=== PATIENT | female | born 1980 | race Caucasian/White ===

== ENCOUNTER 2018-09-11 07:03 | Observation (INO) | payer MEDICAID | END 2018-09-11 08:28 | disposition home or self-care (01) | LOC: FLD 07:03 | PROVIDERS: ADMIT Hospitalist; ATTEND Advanced Practice Midwife | DX: O36.8130 Decreased fetal movements, third trimester, not applicable or unspecified (principal); Z3A.37 37 weeks gestation of pregnancy ==

== ENCOUNTER 2018-09-14 08:35 | Inpatient (IN) | payer MEDICAID ==
[2018-09-14] MEDS ORDERED: OLIVE OIL 118 ML BTL MISC PRN (08:57)
[2018-09-14] MEDS ORDERED: OXYTOCIN/RINGERS LACTATE 1,000 ML IV PRN (08:57)
[2018-09-14] MEDS ORDERED: TERBUTALINE SULFATE 1 MG/ML VIAL IV PRN (08:57)
[2018-09-14] MEDS ORDERED: LIDOCAINE 1% 300 MG/30 ML SDV SC PRN (08:57)
[2018-09-14] MEDS ORDERED: MISOPROSTOL 200 MCG TAB PO PRN (08:57)
[2018-09-14] MEDS ORDERED: AMMONIA AROMATIC 1 EACH AMP IH PRN (08:57)
[2018-09-14] MEDS ORDERED: IBUPROFEN 600 MG TAB PO PRN (08:57)
[2018-09-14] MEDS ORDERED: LR 1,000 ML IV PRN (08:57)
[2018-09-14] MEDS ORDERED: EPSOM SALT 454 GM TP PRN (08:57)
[2018-09-14 09:13] LABS: PLATELET COUNT 156 10^3/uL (150-400)
[2018-09-14] MEDS ORDERED: AMMONIA AROMATIC 1 EACH AMP IH ONE (09:23)
[2018-09-14] MEDS ORDERED: LIDOCAINE 1% 300 MG/30 ML SDV ONE (09:23)
[2018-09-14] MEDS ORDERED: OLIVE OIL 118 ML BTL ONE (09:23)
[2018-09-14] MEDS ORDERED: MISOPROSTOL 200 MCG TAB ONE (09:23)
--- NOTE | 2018-09-14 09:31 | PDGENHP ---
History and Physical History and Physical: Care: [facility] HPI: Patient is a 38yo G 3P 2 @ 37.6 weeks that presents to L&D with complaints of contractions q 15 minutes, painful. Was seen in the office yesterday and found to be 5/75/-2 station, very soft. Hx of precipitous births, the first 2 hours and second 1 hour. She barely made it to the hospital in time for her second baby. Given the hx was advised to immediately come in to labor and delivery for an assessment. EDC: 09/29/2018 which is based on LMP: 01/02/2018 which is known and consistent with Ultrasound at 20 weeks. Her is complicated by: LE varicosities Review of Systems: Constitutional: Denies any fever, chills, or fatigue HEENT: denies any visual changes, difficulty swallowing, hearing loss Cardiovascular: Denies any chest pain, palpitations, leg swelling Respiratory: denies any cough, wheezing, or shortness of breathe GI: Denies any nausea, vomiting, diarrhea, constipation : denies any dysuria, urgency, frequency, vaginal bleeding Musculoskeletal: denies any muscle or bone pain Skin: denies any rashes Neuro: denies any headache, seizures, lightheadedness, dizziness, or loss of consciousness Psychiatric: denies any depression, anxiety, or SI/HI thoughts HISTORY: Previous OB history: Hx of at 37 weeks and 39 weeks; both precipitous births. No hx of hemorrhage or any other complications Past medical history: Hx of migraine WOMACK's while on OCP's, chronic sinusitis. Past surgical history: wisdom teeth Social: Denies any alcohol, tobacco, or drug use. Family history: FOB brother had child that at 1 month due to congenital heart defect; pt declined ECHO or MFM referral Medications: PNV Allergies (list reaction): NKDA LABS: Rh: O+ ABS: Neg Rubella: Immune HbsAg: NR HIV: NR VDRL: NR 1hr: 99 GC: Neg Chlamydia: Neg Pap: Normal- HPV neg GBS: Negative Varicella: equivocal BMI: (prepreg) 18 PHYSICAL EXAM: Constitutional: WN, A&Ox3 HEENT: normocephalic atraumatic, supple Skin: Warm, dry, intact Heart: RRR, no murmur Chest: CTA-B Abdomen: Soft, nontender, gravid SVE: 7/80/-1 station; Very soft and stretch Extremities: neg edema, negative homans sign Neuro: grossly normal Psych: normal affect assessment: FHT baseline 120-130 +accels, occasional variable, moderate variability Contractions: irregular Assessment: 1) 38 yo G 3P 2 with IUP@ 37.6, advanced dilatation, hx of precipitous 2) Latent labor 3) GBS neg 4) Overall Cat 1 FHR tracing with the very occasional variable decel Plan: 1) Admit to L&D 2) Expectant management 3) Anticipate
--- NOTE | 2018-09-14 12:51 | OBDEL ---
Info Type: Vaginal Presentation at Delivery: Vertex L&D Analgesia/Anesthesia Type: None GBS+: No Intrapartum Medications: Discontinued Medications Generic Name Dose Route Start Last Admin Trade Name Mohit PRN Reason Stop Dose Admin Ibuprofen 600 mg 09/14/18 08:57 09/14/18 11:43 Motrin PO 600 mg ONCE PRN Administration post , pain Indications for Delivery: Spontaneous Labor Vaginal Delivery - Delivery Provider Delivery Physician/CNM: Brenda Nj - Labor and Delivery Onset of Contractions Date: 09/14/18 Onset of Contractions Time: 09:15 Onset of Contractions Type: Spontaneous Rupture of Membranes Date: 09/14/18 Rupture of Membranes Time: 11:00 Rupture of Membranes Type: Spontaneous Amniotic Fluid Color: Clear Dilation Complete Date: 09/14/18 Dilation Complete Time: 11:00 Placenta Delivery Date: 09/14/18 Placenta Delivery Time: 11:10 Total Hours of Labor: 1 Vaginal Sponge Count Correct: Yes Vaginal Needle Count Correct: Yes Vaginal Sweep Performed: Yes EBL: 150 Delivery Events: Nuchal Cord Delivery Comment: Delivered in hands and knees position [place] Data MUNA: 09/29/18 Gestational Age: 37 week(s) and 6 day(s) [place] Delivery Date: 09/14/18 Delivery Time: 11:06 Sex of : Male Score (1 Min): 9 Score (5 Min): 10 ICD10 Worksheet Patient Problems: Problems Problem Status Onset Encounter for full-term uncomplicated delivery Acute - ICD10 Problem Qualifiers (1) Encounter for full-term uncomplicated delivery
[2018-09-14] MEDS: ACETAMINOPHEN 325 MG TAB PO SCH ×2 (16:22→19:15)
[2018-09-14] MEDS: IBUPROFEN 600 MG TAB PO SCH (17:53)
[2018-09-15] MEDS: ACETAMINOPHEN 325 MG TAB PO SCH ×3 (00:46→16:22)
[2018-09-15] MEDS: IBUPROFEN 600 MG TAB PO SCH ×4 (00:47→22:32)
[2018-09-15] MEDS: DOCUSATE SODIUM 100 MG CAP PO PRN ×2 (10:02→20:01)
--- NOTE | 2018-09-15 10:29 | OBPP ---
Progress Note Assessment/Plan: Assessment: 1. 2. PP day 1 Plan: 1. support 2. d/c home tomorrow 09/15/18 10:27 Subjective/ Course: 09/15/18 10:28 no c/o. tired, BF well 09/15/18 10:28 Objective: 09/14/18 09:05 Patient ABO/Rh O POSITIVE 09/14/18 09:05 Temp Pulse Resp BP Pulse Ox 36.4 C 66 16 94/57 L 95 09/15/18 01:11 09/15/18 01:11 09/15/18 01:11 09/15/18 01:11 09/15/18 01:11 VSS Uterine Position/Fundal Height: At Umbilicus Uterine Tone: Firm
[2018-09-16] MEDS: ACETAMINOPHEN 325 MG TAB PO SCH ×2 (04:10→04:43)
[2018-09-16] MEDS: IBUPROFEN 600 MG TAB PO SCH (04:42)
[2018-09-16 10:22] VITALS: BP 88/62
[2018-09-16] MEDS ORDERED: ACETAMINOPHEN 325 MG TAB PO SCH (11:00)
--- NOTE | 2018-09-16 12:23 | OBGCSDC ---
General Delivery Information - General Info : 3 Para: 3 Abortions: 0 Type: Vaginal L&D Analgesia/Anesthesia Type: None Admission Date: 09/14/18 Labs: Patient ABO/Rh O POSITIVE 09/14/18 09:05 Hct 37.4 % (38.0-47.0) L 09/14/18 09:05 - Hospital Course : 09/15/18 10:28 no c/o. tired, BF well 09/15/18 10:28 09/16/18 14:22 S) Pt doing well, reports min pain and bleeding. she is ambulating and voiding without difficulty. She is . She desires discharge home today. O) VSS, afebrile constitutional: WNF, A&Ox3 HEENT: normocephalic, atraumatic, supple Heart: RRR, No murmur Chest: CTA-B Breasts: soft, nontender, not engorged, nipples normal/intact Abdomen: Soft, nontender Uterus: Firm at U-2 Lochia: Minimal rubra Perineum: Intact, healing well Extremities: Trace edema, and negative Bin's sign Neuro: Grossly normal A) 38-year-old S/P PPD#2 P) Discharge home today Continue Pelvic rest x6wks Discussed danger signs (infection, preeclampsia, depression, heavy bleeding, etc ) RTO in 2/4/6 weeks Vaginal - Delivery Provider Delivery Physician/CNM: Brenda Nj - Diagnosis Labor: Spontaneous Rupture of Membranes Type: Spontaneous Amniotic Fluid Color: Clear Delivery Events: Nuchal Cord - Delivery EBL: 150 [place] Data MUNA: 09/29/18 Gestational Age: 38 week(s) and 1 day(s) [place] Delivery Date: 09/14/18 Delivery Time: 11:06 Sex of Infant: Male [place] Weight (gm): 3338 kg Score (1 Min): 9 Score (5 Min): 10 Discharge Information - Discharge Information Prescriptions: Ibuprofen [Motrin (*)] 600 mg PO Q6H #60 tab Condition: Good
== END 2018-09-16 13:05 | disposition home or self-care (01) | DRG 560 ==
LOC: FLD 08:35 → OBSVTOIN 08:59 → INTOOBSV 08:59 → FOB 14:00
PROVIDERS: ADMIT Advanced Practice Midwife; ATTEND Advanced Practice Midwife
PROC: 10E0XZZ Delivery of Products of Conception, External Approach (ICD-10-PCS; principal; 2018-09-14)
DX: O69.82X0 Labor and delivery complicated by other cord entanglement, without compression, not applicable or unspecified (principal); Z37.0 Single live birth; Z3A.37 37 weeks gestation of pregnancy
CPT/HCPCS: J2590

== ENCOUNTER → 2019-02-09 | Outpatient (CLI) | payer OTHER | LOC: EEVIPCON 15:00 → FIMAGING 15:30 | PROVIDERS: ATTEND Advanced Practice Midwife | DX: N64.9 Disorder of breast, unspecified (principal) ==